=== PATIENT | male | born 1985 | race African-American/Black ===

== ENCOUNTER 2021-05-25 18:38 | Emergency (ER) | payer SELFPAY ==
[2021-05-25 19:59] VITALS: BP 137/75; PULSE 80
[2021-05-25 20:16] LABS: CORONAVIRUS COVID-19 NAA POSITIVE (NEGATIVE); INFLUENZA A NAA NEGATIVE (NEGATIVE); INFLUENZA B NAA NEGATIVE (NEGATIVE)
--- NOTE | 2021-05-25 21:27 | EDM.PDOC ---
ED HPI GENERAL MEDICAL PROBLEM - General Chief Complaint: Respiratory Problem Stated Complaint: COVID SYMPTOMS/FEVER Time Seen by Provider: 05/25/21 21:15 Source of Information: Reports: Patient History Limitations: Reports: No Limitations - History of Present Illness INITIAL COMMENTS - FREE TEXT/NARRATIVE: 36-year-old male no past medical history presents for concern for Covid. Patient notes that his partner tested positive for Covid last week. For the last 5 days he has had nausea, vomiting, fevers with T-max of 103, body aches, cough, sore throat. - Related Data Allergies Allergy/AdvReac Type Severity Reaction Status Date / Time No Known Allergies Allergy Verified 05/25/21 19:59 Home Meds: Home Meds . [No Known Home Meds] 05/25/21 [History] Past Medical History - Past Health History Medical/Surgical History: Denies Medical/Surgical History Social & Family History - Tobacco Use Second Hand Smoke Exposure: No - Caffeine Use Caffeine Use: Reports: None - Recreational Drug Use Recreational Drug Use: No ED ROS GENERAL - Review of Systems Review Of Systems: Comprehensive ROS is negative, except as noted in HPI. ED EXAM, GENERAL - Physical Exam Exam: See Below Exam Limited By: No Limitations General Appearance: Alert, WD/WN, No Apparent Distress Ears: Hearing Grossly Normal Throat/Mouth: Normal Voice, No Airway Compromise Head: Atraumatic, Normocephalic Respiratory/Chest: No Respiratory Distress, Lungs Clear, Normal Breath Sounds, No Accessory Muscle Use Cardiovascular: Normal Peripheral Pulses, Regular Rate, Rhythm Extremities: Normal Inspection Neurological: Alert, Normal Cognition, Normal Gait Psychiatric: Normal Affect, Normal Mood Skin Exam: Warm, Dry, Intact, Normal Color Course - Vital Signs Last Recorded V/S: Last Vital Signs Temp 97.2 F 05/25/21 19:57 Pulse 80 05/25/21 19:57 Resp 20 05/25/21 19:57 BP 137/75 05/25/21 19:57 Pulse Ox 97 05/25/21 19:57 - Orders/Labs/Meds Labs: Laboratory Tests 05/25/21 Range/Units 19:28 Influenza Type A RNA NEGATIVE (NEGATIVE) Influenza Type B RNA NEGATIVE (NEGATIVE) SARS-CoV-2 RNA ([facility]) POSITIVE H (NEGATIVE) - Re-Assessments/Exams Free Text/Narrative Re-Assessment/Exam: 05/25/21 21:28 We will discharge with monoclonal antibody infusion information. Return precautions discussed at length Departure - Departure Time of Disposition: 21:26 Disposition: Home, Self-Care 01 Condition: Good Clinical Impression: COVID-19 - Discharge Information Instructions: COVID-19: What to Do If You Are Sick- [facility] (07/30/2020) Forms: ED Department Discharge Additional Instructions: Your Covid test was positive. I recommend doing the Regeneron monoclonal antibody therapy. The nurse should give you some paperwork to describe this. They should call you to help you set up an appointment. If you develop chest pain or difficulty breathing come back to the emergency department for reassessment. The following information is given to patients seen in the emergency department who are being discharged to home. This information is to outline your options for follow-up care. We provide all patients seen in our emergency department with a follow-up referral. The need for follow-up, as well as the timing and circumstances, are variable depending upon the specifics of your emergency department visit. If you don't have a primary care physician on staff, we will provide you with a referral. We always advise you to contact your personal physician following an emergency department visit to inform them of the circumstance of the visit and for follow-up with them and/or the need for any referrals to a consulting specialist. The emergency department will also refer you to a specialist when appropriate. This referral assures that you have the opportunity for follow-up care with a specialist. All of these measure are taken in an effort to provide you with optimal care, which includes your follow-up. Under all circumstances we always encourage you to contact your private physician who remains a resource for coordinating your care. When calling for follow-up care, please make the office aware that this follow-up is from your recent emergency room visit. If for any reason you are refused follow-up, please contact the [facility] at and asked to speak to the emergency department charge nurse. Please follow up with your primary care physician. If you do not have a primary care physician, see below: [facility] [address] [place] [id number] [facility] [address] [place], [place] [id number] [facility] [address], [place] [address] Sepsis Event Note (ED) - Evaluation Sepsis Screening Result: No Definite Risk - Focused Exam Vital Signs: Vital Signs Temp Pulse Resp BP Pulse Ox 05/25/21 19:57 97.2 F 80 20 137/75 97
== END 2021-05-25 21:37 | disposition home or self-care (01) ==
LOC: MW.ED 18:38
DX: U07.1 COVID-19 (principal)
CPT/HCPCS: 0240U; 99284

== ENCOUNTER 2023-02-25 12:21 | Emergency (ER) | payer SELFPAY ==
[2023-02-25] MEDS ORDERED: Ketorolac 30 MG/ML SDV IVPUSH ONE (14:06)
[2023-02-25] MEDS ORDERED: Sodium Chloride 0.9% 1,000 ML IV ONE (14:06)
[2023-02-25] MEDS ORDERED: Lidocaine 4% 1 each Patch TOP PRN (14:06)
[2023-02-25 14:30] LABS: BASOPHILS ABSOLUTE AUTO 0.03 K/uL (0.00-0.20); BASOPHILS PERCENT AUTO 0.5 % (0.0-1.0); EOSINOPHILS ABSOLUTE AUTO 0.17 K/uL (0.00-0.45); HEMATOCRIT 43.3 % (42.0-52.0); HEMOGLOBIN 14.8 g/dL (14.0-18.0); IMMATURE GRAN ABSOLUTE AUTO 0.02 K/uL (0.00-0.05); IMMATURE GRAN PERCENT AUTO 0.4 % (0.0-0.4); LYMPHOCYTES ABSOLUTE AUTO 1.97 K/uL (1.00-4.80); LYMPHOCYTES PERCENT AUTO 35.2 % (24.0-44.0); MEAN CORPUSCULAR HEMOGLOBIN 29.4 pg (28.0-32.0); MEAN CORPUSCULAR HGB CONC 34.2 g/dL (32.0-36.0); MEAN CORPUSCULAR VOLUME 85.9 fL (83.0-99.0); MEAN PLATELET VOLUME 8.5 fL (9.4-12.4); MONOCYTES ABSOLUTE AUTO 0.48 K/uL (0.00-0.80); MONOCYTES PERCENT AUTO 8.6 % (0.0-8.0); NEUTROPHILS ABSOLUTE AUTO 2.93 K/uL (1.80-7.70); NEUTROPHILS PERCENT AUTO 52.3 % (41.0-71.0); PLATELET COUNT,PLT 313 K/uL (150-400); RED BLOOD CELL COUNT 5.04 M/uL (4.52-5.90)
[2023-02-25 14:31] LABS: APPEARANCE,URINE CLEAR; BILIRUBIN,URINE NEGATIVE (NEGATIVE); COLOR,URINE YELLOW; GLUCOSE,URINE NEGATIVE (NEGATIVE); KETONES,URINE NEGATIVE (NEGATIVE); LEUKOCYTE ESTERASE,URINE NEGATIVE (NEGATIVE); NITRITE,URINE NEGATIVE (NEGATIVE); OCCULT BLOOD,URINE NEGATIVE (NEGATIVE); PH,URINE 5.5 (5.0-8.0); PROTEIN,URINE NEGATIVE (NEGATIVE); UROBILINOGEN,URINE 0.2 EU/dL (<2.0)
[2023-02-25 14:49] LABS: ALBUMIN 4.1 g/dL (3.4-5.0); BILIRUBIN TOTAL 0.4 mg/dL (0.2-1.0); CALCIUM 9.3 mg/dL (8.5-10.1); CARBON DIOXIDE,CO2 30.1 mmol/L (21.0-32.0); CREATININE 1.3 mg/dL (0.8-1.3); EST CRCL DRUG DOSING (CG) 86.22 mL/min; POTASSIUM,K 4.3 mmol/L (3.5-5.1); PROTEIN TOTAL,TP 8.3 g/dL (6.4-8.2)
[2023-02-25] MEDS ORDERED: Iopamidol 755 MG/ML 500 ML Multipack Bottle IVPUSH ONE (15:58)
[2023-02-25 17:28] VITALS: BP 130/99; PULSE 72
== END 2023-02-25 17:26 | disposition home or self-care (01) ==
LOC: MW.ED 12:21
DX: S39.011A Strain of muscle, fascia and tendon of abdomen, initial encounter (principal); X58.XXXA Exposure to other specified factors, initial encounter
CPT/HCPCS: 36415; 71045; 74177; 80053; 81003; 83690; 85025; 96361; 96374; 99284; A9270; J1885; J7030; Q9967

== ENCOUNTER 2025-01-04 11:04 | Emergency (ER) | payer OTHER ==
[2025-01-04] MEDS: Orphenadrine 60 MG/2 ML Inj IM ONE (11:44)
[2025-01-04] MEDS: Ketorolac 30 MG/ML SDV IM ONE (11:44)
[2025-01-04 12:25] VITALS: BP 147/96; PULSE 80
== END 2025-01-04 12:45 | disposition home or self-care (01) ==
LOC: MW.ED 11:04
DX: S30.0XXA Contusion of lower back and pelvis, initial encounter (principal); M54.41 Lumbago with sciatica, right side; Z79.899 Other long term (current) drug therapy; V86.56XA Driver of dirt bike or motor/cross bike injured in nontraffic accident, initial encounter; Y93.89 Activity, other specified
CPT/HCPCS: 72131; 72192; 96372; 99284; A9270; J1885; J2360; J8540; 99283